=== PATIENT | female | born 1990 | race Caucasian/White ===

== ENCOUNTER 2018-04-01 13:04 | Emergency (ER) | payer OTHER, MEDICAID ==
[~2018-04-01 13:04] MED LIST changes: -METF-450 PO
[2018-04-01] MEDS ORDERED: METF-450 PO (13:08)
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
[2018-04-01 13:20] LABS: PLATELET COUNT, AUTOMATED 252 K/uL (150-450)
[2018-04-01] MEDS ORDERED: IOPAMIDOL 76% 75 ML INFUS BTL 75 ML ONE (13:39)
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
[2018-04-01 15:00] VITALS: BP 110/69
== END 2018-04-01 15:40 | disposition home or self-care (01) ==
LOC: ER 13:15
DX: S09.90XA Unspecified injury of head, initial encounter (principal); S01.01XA Laceration without foreign body of scalp, initial encounter; V49.9XXA Car occupant (driver) (passenger) injured in unspecified traffic accident, initial encounter
CPT/HCPCS: 12001; 70450; 71045; 72125; 74177; 80320; 81001; 84703; 85025; 99284; Q9967; 82040; 82247; 82310; 82374; 82435; 82565; 82947; 84075; 84132; 84155; 84295; 84450; 84460; 84520

== ENCOUNTER → 2018-04-01 | Outpatient (CLI) | payer OTHER, MEDICAID ==
[~2018-04-01] MED LIST: BUSP5TAB PO; BUSP7.5T7 PO; DOC100 PO; DOXY150T2 PO; METF-450 PO; MOX400 PO; NAP250 PO; NO RTN MEDS; PARO10TA78 PO; QUE25 PO; TOPI-75 PO; TRA50 PO
== END ==
LOC: AMB 12:28
PROVIDERS: ATTEND Nurse Practitioner
DX: S01.312A Laceration without foreign body of left ear, initial encounter (principal); R51 Headache; V48.1XXA Car passenger injured in noncollision transport accident in nontraffic accident, initial encounter; W22.12XA Striking against or struck by front passenger side automobile airbag, initial encounter; Y92.413 State road as the place of occurrence of the external cause
CPT/HCPCS: A0425; A0427